=== PATIENT | male | born 1960 | race Caucasian/White ===

== ENCOUNTER 2019-04-09 12:23 | Outpatient (CLI) | payer BC ==
--- NOTE | 2019-04-09 13:35 | MRI ---
MRI RIGHT SHOULDER: DATE: 04/09/2019. PROVIDED CLINICAL HISTORY: Right shoulder pain. FINDINGS: Comparison is made with the study dated 09/14/2011. Interval changes of rotator cuff repair. Promin ent susceptibility artifact limits evaluation for recurrent tear without evidence for full-thickness retear. The components of the rotator cuff repair are otherwise normal. There is longitudinal split tearing of the long head biceps tendon within the bicipital groove. The intraarticular segment of t he long head biceps tendon appears normal. The glenoid labrum and glenohumeral articular cartilage are suboptimally evaluated in the absence of joint distension but appear grossly normal. The amount of fluid within the glenohumeral joint appears physiologic. There is no significant subac romial subdeltoid bursal fluid. Minimal acromioclavicular joint degenerative change. No focal jana rning regional marrow or muscular signal abnormality apparent. IMPRESSION: 1. No evidence for recurrent rotator cuff tear with limitations as above. 2. Longitudinal split tear involving the bicipital segment of the bicipital groove segment of the lo ng head biceps tendon. POS: [facility]
== END 2019-04-09 12:24 | disposition home or self-care (01) ==
LOC: MRI 12:23
PROVIDERS: ATTEND Orthopaedic Surgery
DX: M25.511 Pain in right shoulder (principal); S46.211A Strain of muscle, fascia and tendon of other parts of biceps, right arm, initial encounter

== ENCOUNTER 2019-10-02 06:37 | Outpatient (CLI) | payer BC ==
[2019-10-02 09:41] LABS: #Basophils 0.1 thou/uL (0.0-0.2); #Eosinphils 0.1 thou/uL (0.0-0.7); #Lymphocytes 1.6 thou/uL (1.20-3.40); #Monocytes 0.8 thou/uL (0.11-0.59); #Neutrophils 4.8 thou/uL (1.40-6.50); %Basophils 0.8 % (0.0-1.0); %Eosinophils 1.3 % (0.0-10.0); %Lymphocytes 21.2 % (21.0-51.0); %Monocytes 11.3 % (0.0-10.0); %Neutrophils 65.4 % (42.0-75.0); Hemoglobin 14.1 g/dL (14.0-18.0); Mean Corpuscular HGB CONC 30.6 g/dL (32.0-36.0); Mean Corpuscular Hemoglobin 27.2 pg (27.0-31.0); Mean Platelet Volume 8.2 fL (7.4-10.4); Platelet Count 234 thou/uL (130-400); RBC Distribution Width 12.3 % (11.5-14.5); White Blood Cell (WBC) Count 7.4 thou/uL (4.8-10.8)
[2019-10-02 10:05] LABS: Anion Gap 11 mmol/L (10-20); BUN (Urea Nitrogen) 12 mg/dL (8.4-25.7); Calc. Creatinine Clearance 0 mL/min (70-130); Calcium 9.5 mg/dL (7.8-10.44); Carbon Dioxide 27 mmol/L (22-29); Chloride 107 mmol/L (98-107); Estimated GFR-MDRD 77; Glucose 93 mg/dL (70-105); Potassium 4.2 mmol/L (3.5-5.1); Sodium 141 mmol/L (136-145)
--- NOTE | 2019-10-05 16:17 | EKG ---
Test Reason : Blood Pressure : / mmHG Vent. Rate : 051 BPM Atrial Rate : 051 BPM P-R Int : 148 ms QRS Dur : 084 ms QT Int : 454 ms P-R-T Axes : 037 034 069 degrees QTc Int : 418 ms Sinus bradycardia Otherwise normal ECG When compared with ECG of 22-NOV-2012 06:56, No significant change was found Confirmed by DR. Lucía MCALLISTER ([id number]) on 10/05/2019 4:17:13 PM Referred By: LEVON Confirmed By:DR. Lucía MCALLISTER
== END 2019-10-02 06:38 | disposition home or self-care (01) ==
LOC: LABBT 06:37
PROVIDERS: ATTEND Orthopaedic Surgery
DX: Z01.818 Encounter for other preprocedural examination (principal); S46.211D Strain of muscle, fascia and tendon of other parts of biceps, right arm, subsequent encounter; M75.111 Incomplete rotator cuff tear or rupture of right shoulder, not specified as traumatic
CPT/HCPCS: 80048; 85025; 93005; 93010

== ENCOUNTER 2019-10-03 05:24 | Day surgery (SDC) | payer BC ==
[2019-10-02 08:48] VITALS: BMI 28.1
[2019-10-03] MEDS ORDERED: Midazolam HCl 2 mg/2 ml Vial ONE (06:35)
[2019-10-03] MEDS ORDERED: Fentanyl 100 MCG/2 ML VIAL ONE ×2 (06:35→07:27)
[2019-10-03] MEDS ORDERED: Zolpidem Tartrate 5 MG TAB PO PRN (07:01)
[2019-10-03] MEDS ORDERED: HYDROcodone/Acetaminophen 10/325 mg Tablet PO PRN ×2 (07:01)
[2019-10-03] MEDS ORDERED: Ketorolac Tromethamine 30 MG/ML VIAL IVP PRN (07:01)
[2019-10-03] MEDS ORDERED: Ondansetron PF 4 MG/2 ML Vial IVP PRN (07:01)
[2019-10-03] MEDS ORDERED: Fentanyl 100 MCG/2 ML VIAL IV PRN (07:01)
[2019-10-03] MEDS ORDERED: traMADol HCl 50 MG TAB PO PRN ×2 (07:01)
[2019-10-03] MEDS ORDERED: Ropivacaine 0.2% 550 ML 550 ML NERVE BLCK SCH (07:01)
[2019-10-03] MEDS ORDERED: Promethazine HCl 25 MG/ML VIAL IM PRN (07:01)
[2019-10-03] MEDS ORDERED: Acetaminophen 325 MG TAB PO PRN (07:02)
[2019-10-03] MEDS ORDERED: ePHEDrine/0.9% NaCl/PF SYRINGE 50 mg/10 ml ONE (10:53)
[2019-10-03] MEDS ORDERED: Ropivacaine 0.5% HCl/PF (150 MG/30 ML VIAL) ONE (10:53)
[2019-10-03] MEDS ORDERED: Ondansetron PF 4 MG/2 ML Vial ONE (10:53)
[2019-10-03] MEDS ORDERED: Lidocaine 1% PF 5 ML VIAL ONE (10:53)
[2019-10-03] MEDS ORDERED: Metoclopramide HCl 10 MG/2 ML VIAL ONE (10:53)
[2019-10-03] MEDS ORDERED: Rocuronium Bromide 10 MG/ML (10ML VIAL) ONE (10:53)
[2019-10-03] MEDS ORDERED: PROPOFOL 200 MG/20 ML VIAL ONE (10:53)
[2019-10-03] MEDS ORDERED: Ropivacaine 0.2% HCl/PF (40 MG/20 ML VIAL) ONE (10:53)
[2019-10-03] MEDS ORDERED: Glycopyrrolate 0.2 MG/ML 5 ML SYRINGE ONE (10:53)
[2019-10-03] MEDS ORDERED: Dexamethasone 20 MG/5 ML VIAL ONE (10:53)
[2019-10-03] MEDS ORDERED: HYDROcodone/Acetaminophen 5/325 mg Tablet ONE (10:57)
--- NOTE | 2019-10-05 21:24 | OP ---
DATE OF PROCEDURE: 10/03/2019 PREOPERATIVE DIAGNOSIS: Rotator cuff tear, biceps partial tear. POSTOPERATIVE DIAGNOSIS: Rotator cuff tear, biceps partial tear. PROCEDURE PERFORMED: Right open rotator cuff repair, acromioplasty and biceps tenodesis. ASSISTANTS: Zac. BLOOD LOSS: Less than 100. SPECIMEN: None. DRAINS: None. COMPLICATION: None. DESCRIPTION OF PROCEDURE: The patient was taken to the operating room where general anesthesia was induced. Right arm was prepped and draped in sterile fashion. I made a standard deltoid-splitting approach, performed anterior and inferior acromioplasty, obtained hemostasis as needed and identified the small rotator cuff tear and identified the biceps tendon. The biceps tendon was delivered from the groove, tagged and detached proximally. I then prepared the biceps tendon with a whipstitch using FiberWire suture. I drilled a 7 mm hole, deployed the tendon to a 7 mm hole and fixed it with a 7 mm Bio-Tenodesis screw. The rotator cuff was repaired with a corkscrew suture anchor. The sutures were passed in a [place] fashion to the cuff and tied down with a good watertight repair and then reinforced with a double row repair down to the suture skin of the biceps tenodesis. Irrigation was performed. The deltoid was repaired back to bone using one Ethibond suture. Subcutaneous tissue was closed with 2-0 Vicryl, skin was closed with thelma, sterile dressing applied. Job ID: [id number]
== END 2019-10-03 11:15 | disposition home or self-care (01) ==
LOC: SDC 05:24
PROVIDERS: ATTEND Orthopaedic Surgery
PROC: 0RQG0ZZ Repair Right Acromioclavicular Joint, Open Approach (ICD-10-PCS; principal; 2019-10-03)
PROC: 0LQ10ZZ Repair Right Shoulder Tendon, Open Approach (ICD-10-PCS; principal; 2019-10-03)
PROC: 3E0T3BZ Introduction of Anesthetic Agent into Peripheral Nerves and Plexi, Percutaneous Approach (ICD-10-PCS; principal; 2019-10-03)
DX: M75.111 Incomplete rotator cuff tear or rupture of right shoulder, not specified as traumatic (principal); S46.211A Strain of muscle, fascia and tendon of other parts of biceps, right arm, initial encounter; E78.5 Hyperlipidemia, unspecified; G89.18 Other acute postprocedural pain; Z79.899 Other long term (current) drug therapy
CPT/HCPCS: A4306; C1713; J0690; J1100; J2001; J2250; J2405; J2704; J2765; J2795; J3010

== ENCOUNTER 2019-11-17 09:11 | Outpatient (CLI) | payer BC ==
--- NOTE | 2019-11-17 11:26 | MRI ---
MRI OF LEFT SHOULDER PERFORMED WITHOUT CONTRAST ENHANCEMENT: HISTORY: Left shoulder pain, evaluation for labral injury. FINDINGS: Mild arthrosis of the AC joint. The supra- as well as infraspinatus tendons appear intact. The subscapularis muscle and tendon are intact. The biceps tendon appears to be in normal position w ithin the bicipital groove. Overall scan quality is suboptimal as the patient's shoulders were conta cting the edge of the magnet and the overall signal to noise is not optimal on this examination. It is difficult to adequately assess the labrum given the limiting factors of the quality of this exa mination. I do not see any definitive signs of any SLAP-type tear. The inferior glenohumeral ligame nt is intact. No significant rotator cuff muscle atrophy. IMPRESSION: 1. Limited examination. The patient's shoulders were broad enough that he was actually contacting t he side of the magnet and this did fairly significantly affect the signal to noise ratio and overall quality of this exam. 2. Arthrosis of the acromioclavicular joint. A suggestion of some minimal edema change of the dista l end of the clavicle. 3. No evidence of rotator cuff tear. 4. Limited assessment of the labrum. POS: [facility]
== END 2019-11-17 09:12 | disposition home or self-care (01) ==
LOC: BICMRI 09:11
PROVIDERS: ATTEND Orthopaedic Surgery
DX: S43.432A Superior glenoid labrum lesion of left shoulder, initial encounter (principal); M19.012 Primary osteoarthritis, left shoulder